=== PATIENT | male | born 1945 | race Caucasian/White ===

== ENCOUNTER 2017-05-16 09:30 | Outpatient (CLI) | payer MEDICARE ==
--- NOTE | 2017-05-16 15:22 | NM ---
WHOLE BODY BONE SCAN: Clinical history: Malignant neoplasm of prostate. Comparison: 06-01-14 FINDINGS: There is a stable small focus of increased activity at the proximal sternal body. Scattered degenerat meron change is present. There has been interval right knee replacement since the prior exam. Photopeni c defects at each knee are noted related to prior arthroplasty. Scattered degenerative changes are re -demonstrated. IMPRESSION: 1. No significant interval detrimental change comparing to the 06-01-14 exam. 2. There is no interval development of osteoblastic metastatic lesion identified. 3. Additional details as above. POS: [facility]
== END 2017-05-16 09:31 | disposition home or self-care (01) ==
LOC: NM 09:30
PROVIDERS: ATTEND Internal Medicine Medical Oncology
DX: C61 Malignant neoplasm of prostate (principal)
CPT/HCPCS: 78306; A9503

== ENCOUNTER 2017-12-25 10:44 | Outpatient (CLI) | payer MEDICARE ==
[~2017-12-25 10:44] MED LIST: Iopamidol 370 76% 100 ML VIAL ONE
--- NOTE | 2017-12-25 13:30 | CT ---
CT ABDOMEN AND PELVIS PERFORMED WITH AND WITHOUT CONTRAST ENHANCEMENT: HISTORY: The patient has a history of prostate cancer, now with an elevated PSA. COMPARISON: Bone scan from 05/16/2017. CT abdomen and pelvis from 04/23/2014. FINDINGS: ABDOMEN: The lung bases are clear of infiltrates. There is a granuloma in the left lower lobe. The liver and spleen are normal in size and appearance. The pancreas and gallbladder regions appear unremarkable. The right and left adrenal glands are normal in appearance. No renal calculi are demonstrated. Hypo density involving the mid pole of the left kidney has increased in size, and now measures 9 to 10 mm, whereas it was 4 to 5 mm on the previous study. It is difficult to characterize due to its small si ze. CT Hounsfield unit number on the precontrast images is 7 and on the post contrast images is 9; t herefore, it is still felt to represent a cyst. Is does not show any definite enhancement. There is no significant periaortic or mesenteric lymphadenopathy. PELVIS: On the previous examination, there is a large lymph node, which was interposed between the i nternal and external iliac arteries on the left. This is no longer present. I do not appreciate any significant pelvic lymphadenopathy. Review of the osseous structures shows postoperative changes of the lumbar spine. No blastic bony ch felicia is noted. IMPRESSION: 1. The hypodensity within the mid pole of the left kidney has increased in size but does not show an y enhancement and has CT numbers that are suggestive of a small cyst. 2. The large left-sided pelvic lymph node is no longer present. POS: [facility]
== END 2017-12-25 10:45 | disposition home or self-care (01) ==
LOC: CT 10:44
PROVIDERS: ATTEND Urology
DX: C61 Malignant neoplasm of prostate (principal); R93.422 Abnormal radiologic findings on diagnostic imaging of left kidney
CPT/HCPCS: 74178

== ENCOUNTER 2018-01-14 09:21 | Outpatient (CLI) | payer MEDICARE ==
--- NOTE | 2018-01-14 14:59 | NM ---
WHOLE BODY BONE SCAN: INDICATION: Malignant neoplasm of prostate, followup. COMPARISON: Reference is made to 05/16/2017 exam. RADIOPHARMACEUTICAL: 33 mCi Technetium 99m MDP IV. FINDINGS: There is no scintigraphic activity to indicate osseous metastatic disease. Scattered degenerative ac tivity of the axial and appendicular skeleton present. The prior focus of increased activity at the proximal aspect of the sternum is less conspicuous. Photopenic defects at each knee are again seen r elated to indwelling hardware. IMPRESSION: 1. No interval development of osseous metastatic disease. 2. Prior focus of activity at the sternum has decreased in conspicuity. POS: [facility]
== END 2018-01-14 09:22 | disposition home or self-care (01) ==
LOC: NM 09:21
PROVIDERS: ATTEND Internal Medicine Medical Oncology
DX: C61 Malignant neoplasm of prostate (principal)
CPT/HCPCS: 78306; A9503

== ENCOUNTER 2024-05-18 04:07 | Emergency (ER) | payer MEDICARE, OTHER ==
[2024-05-18 05:25] LABS: Bacteria/HPF 1+ HPF (None Seen); Bilirubin Negative (Negative); Blood, Urine 3+ (Negative); CAUTI Indications for Culture Acute Hematuria; Clarity Extra Turbid (Clear); Glucose, Urine (Dipstick) Normal (Negative); Ketone, Urine Negative (Negative); Leukocyte Negative Leu/uL (Negative); Nitrite Negative (Negative); Protein, Urine (Dipstick) 100 mg/dL (Neg-Trace); RBC/HPF Greater than 50 HPF (0-3); Specific Gravity, Urine 1.024 (1.002-1.036); Squamous Epithelial 0-3 HPF (0-3); Urobilinogen Normal mg/dL (Less than 2); WBC/HPF Greater than 50 HPF (0-3); pH, Urine 5.5 (5.0-9.0)
[2024-05-18 05:26] LABS: Urine Culture Reflex Yes Yes
[2024-05-18 06:08] LABS: #Basophils 0.09 10x3/uL (0.0-0.2); %Basophils 1.3 % (0.0-1.0); %Eosinophils 1.5 % (0.0-10.0); %Monocytes 5.6 % (0.0-10.0); %Neutrophils 76.3 % (42.0-75.0); Hematocrit 35.9 % (42.0-52.0); Mean Corpuscular HGB CONC 33.4 g/dL (32.0-36.0); Mean Corpuscular Hemoglobin 29.5 pg (27.0-31.0); Mean Corpuscular Volume 88.2 fL (78.0-98.0); Mean Platelet Volume 10.5 fL (7.4-10.4); Platelet Count 280 10x3/uL (130-400); RBC Distribution Width 12.3 % (11.5-14.5); Red Blood Cell (RBC) Count 4.07 mill/uL (4.70-6.10)
[2024-05-18 06:21] LABS: PTT 26.8 sec (22.9-36.1); Prothrombin Time 13.5 sec (12.0-14.7)
[2024-05-18 06:29] LABS: ALT (SGPT) Less than 7 U/L (Less than 45); AST (SGOT) 20 U/L (11-34); Albumin 3.4 g/dL (3.1-4.5); Alkaline Phosphatase 141 U/L (40-110); Anion Gap 13 mmol/L (10-20); BUN (Urea Nitrogen) 14 mg/dL (8.4-25.7); Bilirubin, Total 0.2 mg/dL (0.3-1.2); Calc. Creatinine Clearance 0 mL/min (70-130); Calcium 8.5 mg/dL (7.8-10.44); Carbon Dioxide 25 mmol/L (23-31); Chloride 106 mmol/L (98-107); Estimated GFR 87; Globulin 4.1 g/dL (2.4-3.5); Glucose 95 mg/dL (83-110); Potassium 3.8 mmol/L (3.5-5.1); Protein, Total 7.5 g/dL (5.8-8.1); Sodium 140 mmol/L (136-145)
[2024-05-18] MEDS ORDERED: Doxycycline 100 MG CAP ONE (06:53)
== END 2024-05-18 06:59 | disposition home or self-care (01) ==
LOC: ERS 04:07
DX: N39.0 Urinary tract infection, site not specified (principal); R31.9 Hematuria, unspecified; I10 Essential (primary) hypertension; Z87.891 Personal history of nicotine dependence
CPT/HCPCS: 36415; 80053; 81001; 85025; 85610; 85730; 87086; 99283

== ENCOUNTER 2025-04-07 11:37 | Outpatient (CLI) | payer OTHER | END 2025-04-07 11:38 | disposition home or self-care (01) | LOC: BICRAD 11:37 | PROVIDERS: ATTEND Internal Medicine | DX: C61 Malignant neoplasm of prostate (principal); R07.9 Chest pain, unspecified; Z79.899 Other long term (current) drug therapy; R91.8 Other nonspecific abnormal finding of lung field | CPT/HCPCS: 71046 ==